=== PATIENT | female | born 1930 | race Caucasian/White ===

== ENCOUNTER → 2016-08-14 | Outpatient (REF) | payer MEDICARE ==
[~2016-08-14] MED LIST: /AMLO25TA PO; /GLIM2TA OR; ACET65TA; ATEN50TA2 PO; AUGM875T27 PO; CIPR-250 PO; CIPR250T3 PO; CIPR500T19; COLC1TAB5 PO; COUM1TAB14 PO; COUM1TAB17 PO; COUM2TAB10 PO; COUM7.5T PO; DETR4CAP PO; DETR4CAP10 PO; DIOV160T6 PO; DIOV320T PO; DIOV80TA PO; FURO40TA2 PO; GLIM2TAB PO; GLIP10TA6 PO; GLUC850T; INSUDET SC; INSUHUMDS SC; INSULADS SC; LASI20TA PO; LEVA500T PO; LOPR50TA PO; METO25TAB PO; MYSO50TA PO; MYSO50TA5 PO; PERCOCET PO; SITA50TAB PO; TYLE325T5 PO; TYLE650T35 PO; TYLENOL #3; VALS1TAB48 PO; VICO5TAB OR; WARF-21 PO; WARF-23 PO; ZETI10TA PO; ZETI10TA2 PO
== END ==
LOC: M LAB REF 14:18
PROVIDERS: ATTEND Internal Medicine Medical Oncology
DX: C56.9 Malignant neoplasm of unspecified ovary (principal)

== ENCOUNTER → 2016-11-20 | Outpatient (REF) | payer MEDICARE | LOC: M LAB REF 16:33 | PROVIDERS: ATTEND Internal Medicine Medical Oncology | DX: C56.9 Malignant neoplasm of unspecified ovary (principal) ==

== ENCOUNTER → 2017-02-05 | Outpatient (CLI) | payer MEDICARE ==
[~2017-02-05] MED LIST changes: +ATOR1TAB19 PO; -AUGM875T27 PO; +AUGM875T28 PO; +COLC1TAB14 PO; -COLC1TAB5 PO; +COUM2.5T17 PO; -COUM2TAB10 PO; +COUM2TAB22 PO; -DETR4CAP10 PO; +FOLI1TAB4 PO; +INSULANT SC; +LASI40TA PO; +LEVA1TAB2 PO; -LEVA500T PO; -ZETI10TA2 PO; +ZETI10TA30 PO
--- NOTE | 2017-02-05 13:07 | REPMRS ---
Patient History The patient states she has not had a clinical breast exam in over a year. Patient is postmenopausal, has history of other cancer at age 82, has history of ovarian cancer at age 77, and had previous chemotherapy at age 77. No known family history of cancer. Benign excisional biopsy of the right breast. Digital Woman Screen Mammo: February 05, 2017 - Exam #: [id number] Bilateral CC and MLO view(s) were taken. Technologist: Precious Salazar, Technologist Prior study comparison: February 02, 2016, digital woman screen mammo performed at [facility]. January 28, 2015, digital woman screen mammo performed at [facility]. FINDINGS: There are scattered fibroglandular densities. There is a fairly symmetric fibroglandular pattern in both breasts. There has been no interval development of masses, areas of architectural distortion or clusters of microcalcifications typical of malignancy. ASSESSMENT: BI-RADS/ACR category 2 mammogram. Benign finding(s). Recommendation Routine screening mammogram of both breasts in 1 year (for women over age 40). This mammogram was interpreted with the aid of an FDA-approved computer-aided dectection system. Electronically Signed By: Ran Jacome MD 02/05/17 [id number]
== END ==
LOC: M WHC 10:46
PROVIDERS: ATTEND Family Medicine
DX: Z12.31 Encounter for screening mammogram for malignant neoplasm of breast (principal); Z78.0 Asymptomatic menopausal state; R92.8 Other abnormal and inconclusive findings on diagnostic imaging of breast

== ENCOUNTER → 2017-03-18 | Outpatient (REF) | payer MEDICARE | LOC: M LAB REF 16:27 | PROVIDERS: ATTEND Internal Medicine Medical Oncology | DX: C56.9 Malignant neoplasm of unspecified ovary (principal) ==

== ENCOUNTER → 2017-04-24 | Outpatient (CLI) | payer MEDICARE ==
[2017-04-24 11:18] LABS: MEAN CORPUSCULAR HEMOGLOBIN 31.5 pg (27.0-33.0); MEAN CORPUSCULAR VOLUME 95.6 fl (80.0-96.0); PLATELET COUNT, AUTOMATED 163 10^3/uL (150-450); RED CELL DISTRIBUTION WIDTH 15.1 % (11.5-14.5); WHITE BLOOD COUNT 6.6 10^3/uL (4.0-10.0)
[2017-04-24 11:34] LABS: INR 2.16
[2017-04-24 11:41] LABS: CALCIUM LEVEL 8.5 MG/DL (8.8-10.2); CREATININE FOR GFR 1.21 MG/DL (0.55-1.02)
--- NOTE | 2017-04-24 11:42 | REP ---
PA and lateral chest: Comparison is 04/23/2016. There is a left subclavian [id number], unchanged. There is a small parenchymal scar in the left costophrenic angle, unchanged. Lung urbina are clear otherwise. Cardiac size is normal. The scott, mediastinum, and bony thorax are unchanged. Impression: Essentially negative chest. No interval change. Signed by Ran Lopez MD 04/24/2017 11:33 A
--- NOTE | 2017-04-25 19:58 | ECGEPIP ---
Stationary ECG Study [facility] Test Date: 2017-04-24 Pat Name: LUCIANA GUILLEN Department: Room: - Gender: F Reverser: BIPIN : [id number] Requested By: Kim HUSSEIN Order Number: [id number] Reading MD: Reinaldo Hutson Measurements Intervals Harmony Rate: 59 P: 62 WY: 185 QRS: -37 QRSD: 98 T: 30 QT: 437 QTc: 435 Interpretive Statements SINUS BRADYCARDIA WITH OCCASIONAL SUPRAVENTRICULAR PREMATURE COMPLEXES MARKED LEFT AXIS DEVIATION MINIMAL ST DEPRESSION NO CHANGE SINCE DAY BEFORE Electronically Signed On 04-25-2017 19:58:06 EST by Reinaldo Hutson
== END ==
LOC: M LAB 10:41
PROVIDERS: ATTEND Nurse Practitioner Women's Health
DX: Z01.818 Encounter for other preprocedural examination (principal); N13.30 Unspecified hydronephrosis; Z79.01 Long term (current) use of anticoagulants; Z79.899 Other long term (current) drug therapy

== ENCOUNTER 2017-05-01 13:36 | Day surgery (SDC) | payer MEDICARE ==
[~2017-05-01] VITALS: Ht 170.2 cm; Wt 99.8 kg
[2017-05-01] MEDS ORDERED: LR 1,000 ML IV ONE (14:00)
[2017-05-01 14:16] LABS: INR 1.07
[2017-05-01] MEDS ORDERED: CONRAY-60 60% 50ML VIAL (Q9961) As Ordered ONE (14:34)
[2017-05-01] MEDS ORDERED: LIDOCAINE 2% 5ML JELLY UROJET As Ordered ONE (14:51)
[2017-05-01] MEDS ORDERED: fentaNYL 250 MCG/5 ML INJECTION (J3010) As Ordered ONE (15:06)
[2017-05-01] MEDS ORDERED: LIDOCAINE 2% INJ 100 MG/5 ML SDV (FOR ANES.) As Ordered ONE (15:06)
[2017-05-01] MEDS ORDERED: MIDAZOLAM INJ 2 MG/2 ML VIAL (J2250) As Ordered ONE (15:06)
[2017-05-01] MEDS ORDERED: PROPOFOL 200 MG/20 ML VIAL As Ordered ONE ×3 (15:06→16:02)
[2017-05-01] MEDS ORDERED: METHYLENE BLUE 0.5% (5MG/ML) 10 ML AMP (PROVAYBLUE)(Q9968 PER 1MG) As Ordered ONE (15:51)
[2017-05-01] MEDS ORDERED: TYLE650T35 PO (16:35)
[2017-05-01] MEDS ORDERED: LEVA1TAB2 PO (16:35)
[2017-05-01] MEDS ORDERED: fentaNYL 100 MCG/2 ML INJECTION (J3010) IV PRN (17:45)
[2017-05-01] MEDS ORDERED: NORCO, ANEXSIA 5/325MG TABLET (HYDROcodone/ACETAMINOPHEN) PO PRN (17:45)
[2017-05-01] MEDS ORDERED: ONDANSETRON 4MG/2ML VIAL (J2405) IV PRN (17:45)
[2017-05-01] MEDS ORDERED: LR 1,000 ML IV SCH (17:45)
[2017-05-01 18:20] VITALS: BP_SYST 180
--- NOTE | 2017-05-01 18:20 | REP ---
C-ARM VIEWS, ABDOMEN DURING PLACEMENT OF URETERAL CATHETER: Multiple C-ARM views are performed. There is injection of contrast into a moderately dilated pelvicalyceal system and ureter, partially opacified. There is placement of a right ureteral stent with the proximal end coiled in the right renal pelvis and the distal end coiled in the region of the urinary bladder. 2 minutes 59 seconds of fluoroscopy time was utilized. Signed by Ran Jacome MD 05/02/2017 04:52 P
[2017-05-01 18:21] VITALS: BP_DIAS 80
[2017-05-01] MEDS ORDERED: ACETAMINOPHEN 650MG ER TAB (TYLENOL ARTHRITIS) PO SCH ×2 (18:45→22:00)
[2017-05-01] MEDS ORDERED: LevoFLOXacin 500 MG TABLET PO ONE (21:00)
[2017-05-02] MEDS ORDERED: LevoFLOXacin 500 MG TABLET PO SCH (06:00)
--- NOTE | 2017-05-02 07:21 | RO ---
DATE OF PROCEDURE: 05/01/2017 PREOPERATIVE DIAGNOSIS: Right hydronephrosis due to extrinsic ureteral obstruction. POSTOPERATIVE DIAGNOSIS: Right hydronephrosis due to extrinsic ureteral obstruction. PROCEDURE: Cystoscopy, plus transurethral resection of bladder tumor (TURBT), plus right retrograde pyelogram plus exchange of JJ metallic stent #6-Vincentian x 26 cm. SURGEON: Dr. El Peck BRANCH [employer] CLERK: None. ANESTHESIA: General. 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 COMPLICATIONS: None. ESTIMATED BLOOD LOSS: Minimal. HISTORY OF PRESENT ILLNESS: This is an 86-year-old female patient that had a history of ovarian cancer. She has right hydronephrosis. She has a right metallic stent that has been in place for 1 year. She is here today for right metallic JJ stent exchange. PROCEDURE DESCRIPTION: In a patient under general anesthesia in supine modified low lithotomy position, after prepping and draping the area of concern which included the entire genitalia and abdomen, we introduced a cystoscope 21 Vincentian cystoscope with a 30 degrees lens. Under videoscopic guidance, we actually visualized the right metallic stent in good position. There was severe bullous edema and solid tumor around the metallic stent. With a grasper, we pulled it out of the body of the patient and then with a cystoscopy, we tried to find the right ureteral orifice. We could not find it at all because of the bullous edema and because of solid tumor around the ureteral orifice. For this reason, we actually decided to reset the area with bipolar resection. We actually did a resection of the area until it was clear. It was very difficult to find the right ureteral orifice. We passed a Pollack catheter retrograde. We could see hydronephrosis and tortuous ureter all the way up to that kidney. We then passed a guidewire, took the Pollack catheter out and passed a metallic stent sheath up to the kidney, removed the internal obturator and guidewire and left transparent sheath of the metallic stent in place in the right renal pelvis. We then collected some urine specimen from the right renal pelvis for urine culture and then we proceeded to actually pass a metallic stent up to the kidney. Once it was in good position and curled in the right renal pelvis, we removed the transplant applicator out and we could see the curl in the bladder. We then proceeded to place a resectoscope, fulgurate all the bladder vessels and take all the chips of bladder tumor resected with Ellik evacuator. These were sent for permanent pathology analysis as bladder tumor. We then proceeded to take the resectoscope out and place a #20-Vincentian Martinez catheter, inflated the balloon to [address] it to gravity. PLAN: The patient will go home today. She will have the Martinez catheter for 1 week. She will followup at [facility] in 1 week to remove the Martinez catheter and voiding trial. She will have also Levaquin 500 mg one tablet by mouth daily and Tylenol every 8 hours as needed for pain. She will drink 2 liters of water a day. She will followup in 1 week. Permanent pathology analysis from the TURBT was sent. The patient had a very difficult JJ stent placement. The stent can be actually in place for 1 year, however, we should consider that in the future, she could have a nephrostomy tube if it is impossible to exchange it.
== END 2017-05-01 18:40 | disposition home or self-care (01) ==
LOC: M SDC 13:36
PROVIDERS: ATTEND Urology
DX: N13.30 Unspecified hydronephrosis (principal); D49.4 Neoplasm of unspecified behavior of bladder; I10 Essential (primary) hypertension; E78.00 Pure hypercholesterolemia, unspecified; E11.9 Type 2 diabetes mellitus without complications; N39.46 Mixed incontinence; G25.0 Essential tremor; K76.0 Fatty (change of) liver, not elsewhere classified; I48.0 Paroxysmal atrial fibrillation; M12.9 Arthropathy, unspecified; Z79.899 Other long term (current) drug therapy; Z79.01 Long term (current) use of anticoagulants; Z86.711 Personal history of pulmonary embolism; Z85.43 Personal history of malignant neoplasm of ovary; Z92.21 Personal history of antineoplastic chemotherapy; Z90.710 Acquired absence of both cervix and uterus
CPT/HCPCS: 36415; 52235; 52332; 74420; 85610; 87086; 88305; C2625; J0690; J2250; J3010; Q9961; Q9968

== ENCOUNTER 2017-05-08 19:34 | Emergency (ER) | payer MEDICARE ==
[~2017-05-08] VITALS: Ht 170.2 cm; Wt 100.0 kg
[2017-05-08 19:35] VITALS: BP 138/72
[2017-05-08] MEDS ORDERED: COUM1TAB17 PO (19:53)
[2017-05-08] MEDS ORDERED: COUM2.5T17 PO (19:53)
[2017-05-08] MEDS ORDERED: CYCLOBENZAPRINE 5MG TABLET PO ONE (21:00)
[2017-05-08] MEDS ORDERED: CYCL5TAB PO (21:01)
== END 2017-05-08 21:28 | disposition home or self-care (01) ==
LOC: M ED 19:34
DX: M54.30 Sciatica, unspecified side (principal); N18.9 Chronic kidney disease, unspecified; Z86.718 Personal history of other venous thrombosis and embolism; Z86.711 Personal history of pulmonary embolism; Z79.899 Other long term (current) drug therapy; Z79.01 Long term (current) use of anticoagulants; Z79.4 Long term (current) use of insulin

== ENCOUNTER 2017-07-27 07:14 | Inpatient (IN) | payer MEDICARE ==
[2017-07-27] MEDS: NS 1,000 ML IV (07:46)
[2017-07-27 08:18] LABS: BASO % 0.4 % (0.0-1.0); EOS % 0.4 % (0.0-3.0); HEMATOCRIT 39.7 % (36.0-47.0); IMMATURE GRANULOCYTE % 0.8 % (0-3.0); LYMPH # 0.9 10^3/uL (1.5-4.5); LYMPH % 16.9 % (24.0-44.0); MEAN CORPUSCULAR HEMOGLOBIN 30.8 pg (27.0-33.0); MEAN CORPUSCULAR HGB CONC 32.7 g/dl (32.0-36.5); MEAN CORPUSCULAR VOLUME 94.1 fl (80.0-96.0); MONO # 0.6 10^3/uL (0.0-0.8); MONO % 11.8 % (0.0-5.0); NEUTROPHILS # 3.7 10^3/uL (1.8-7.7); NEUTROPHILS % 69.7 % (36.0-66.0); PLATELET COUNT, AUTOMATED 136 10^3/uL (150-450); RED BLOOD COUNT 4.22 10^6/uL (4.00-5.40); RED CELL DISTRIBUTION WIDTH 15.3 % (11.5-14.5); WHITE BLOOD COUNT 5.3 10^3/uL (4.0-10.0)
[2017-07-27 08:27] LABS: PROTHROMBIN TIME 20.5 SECONDS (12.4-14.5)
[2017-07-27] MEDS: ALBUTEROL SULFATE 2.5 MG/0.5 ML INH NEB SOLN NEB ×3 (08:32→09:08)
[2017-07-27 08:48] LABS: ANION GAP 8 MEQ/L (8-16); BLOOD UREA NITROGEN 17 MG/DL (7-18); CALCIUM LEVEL 8.8 MG/DL (8.8-10.2); CARBON DIOXIDE LEVEL 28 MEQ/L (21-32); CHLORIDE LEVEL 100 MEQ/L (98-107); CPK CREATINE PHOSPHOKINASE 82 U/L (26-192); CREATININE FOR GFR 0.96 MG/DL (0.55-1.30); GLOMERULAR FILTRATION RATE 58.7 (>32); GLUCOSE, FASTING 146 MG/DL (70-100); SODIUM LEVEL 136 MEQ/L (136-145); TROPONIN I < 0.02 NG/ML (< 0.10)
[2017-07-27 08:49] LABS: CK-MB VALUE MASS 1.2 NG/ML (0.0-3.6); MB/CK RELATIVE INDEX 1.46 (< OR =4)
[2017-07-27 08:55] LABS: ALBUMIN 3.3 GM/DL (3.2-5.2); ALBUMIN/GLOBULIN RATIO 0.73 (1.00-1.93); ALKALINE PHOSPHATASE 147 U/L (45-117); ALT/SGPT 14 U/L (12-78); AST/SGOT 27 U/L (7-37); BILIRUBIN,DIRECT 0.1 MG/DL (0.0-0.2); BILIRUBIN,TOTAL 0.5 MG/DL (0.2-1.0); NT-PRO BNP 3987 PG/ML (<450); TOTAL PROTEIN 7.8 GM/DL (6.4-8.2)
[2017-07-27] MEDS ORDERED: ACETAMINOPHEN TAB 650MG DOSE (2X325MG) PO (11:15)
[2017-07-27] MEDS ORDERED: ONDANSETRON 4MG/2ML VIAL (J2405) IV (11:15)
[2017-07-27] MEDS: HumaLOG INSULIN (NovoLOG) PER UNIT SC ×3 (12:00→20:24)
[2017-07-27] MEDS ORDERED: NS 1,000 ML IV (12:00)
[2017-07-27] MEDS: IPRATROPIUM 0.5MG/ALBUTEROL 2.5MG INH SOL UD 3ML (DUONEB)(J7620) NEB ×3 (12:00→19:25)
[2017-07-27] MEDS ORDERED: GLUCOSE 4 GM CHEW TABLET PO (13:30)
[2017-07-27] MEDS ORDERED: DEXTROSE 50% 50 ML SYRINGE IV (13:30)
[2017-07-27] MEDS ORDERED: GLUCAGON FOR INJ 1 MG VIAL (J1610) SC (13:30)
[2017-07-27] MEDS ORDERED: ALBUTEROL SULFATE 2.5 MG/0.5 ML INH NEB SOLN INH (13:45)
[2017-07-27] MEDS: FOLIC ACID 1 MG TAB PO (15:45)
[2017-07-27] MEDS: predniSONE 10 MG TAB PO (15:46)
[2017-07-27 16:37] LABS: CK-MB VALUE MASS 1.3 NG/ML (0.0-3.6); CPK CREATINE PHOSPHOKINASE 83 U/L (26-192); MB/CK RELATIVE INDEX 1.56 (< OR =4); TROPONIN I < 0.02 NG/ML (< 0.10)
[2017-07-27] MEDS: TOLTERODINE TARTRATE 2 MG LA CAP (DETROL LA) PO (16:57)
[2017-07-27] MEDS: WARFARIN SOD 3 MG TAB PO (16:58)
[2017-07-27] MEDS: ATENOLOL 50 MG TAB PO (16:59)
[2017-07-27] MEDS: SITagliptin 50 MG TAB (JANUVIA) PO (17:00)
[2017-07-27 17:12] LABS: BEDSIDE GLUCOSE 188 MG/DL (83-110)
[2017-07-27] MEDS: amLODIPine 5 MG TAB PO (18:30)
[2017-07-27 20:23] LABS: BEDSIDE GLUCOSE 249 MG/DL (83-110)
[2017-07-27] MEDS: LEVEMIR (INSULIN DETEMIR) 1 UNITS/0.01ML SC (20:24)
[2017-07-27] MEDS: PRIMIDONE 50 MG TAB PO (20:25)
[2017-07-27] MEDS: ATORVASTATIN 10 MG TAB PO (20:25)
[2017-07-28] MEDS ORDERED: SLF 3 ML SYR IV (03:15)
[2017-07-28] MEDS: IPRATROPIUM 0.5MG/ALBUTEROL 2.5MG INH SOL UD 3ML (DUONEB)(J7620) NEB ×6 (04:00→20:39)
[2017-07-28 04:08] LABS: BASO % 0.3 % (0.0-1.0); HEMATOCRIT 35.2 % (36.0-47.0); HEMOGLOBIN 11.6 g/dl (12.0-16.0); IMMATURE GRANULOCYTE % 1.1 % (0-3.0); LYMPH # 0.9 10^3/uL (1.5-4.5); LYMPH % 24.7 % (24.0-44.0); MEAN CORPUSCULAR HEMOGLOBIN 30.7 pg (27.0-33.0); MEAN CORPUSCULAR VOLUME 93.1 fl (80.0-96.0); MONO # 0.3 10^3/uL (0.0-0.8); MONO % 6.6 % (0.0-5.0); NEUTROPHILS # 2.5 10^3/uL (1.8-7.7); NEUTROPHILS % 67.3 % (36.0-66.0); PLATELET COUNT, AUTOMATED 122 10^3/uL (150-450); RED BLOOD COUNT 3.78 10^6/uL (4.00-5.40); RED CELL DISTRIBUTION WIDTH 15.1 % (11.5-14.5); WHITE BLOOD COUNT 3.8 10^3/uL (4.0-10.0)
[2017-07-28 04:28] LABS: ANION GAP 6 MEQ/L (8-16); BLOOD UREA NITROGEN 16 MG/DL (7-18); CALCIUM LEVEL 8.3 MG/DL (8.8-10.2); CARBON DIOXIDE LEVEL 28 MEQ/L (21-32); CHLORIDE LEVEL 102 MEQ/L (98-107); CREATININE FOR GFR 0.94 MG/DL (0.55-1.30); GLOMERULAR FILTRATION RATE > 60.0 (>32); GLUCOSE, FASTING 217 MG/DL (70-100); POTASSIUM SERUM 4.3 MEQ/L (3.5-5.1); SODIUM LEVEL 136 MEQ/L (136-145)
[2017-07-28] MEDS: SLF 3 ML SYR IV ×3 (05:25→21:03)
[2017-07-28] MEDS: FOLIC ACID 1 MG TAB PO (08:48)
[2017-07-28] MEDS: predniSONE 10 MG TAB PO (08:48)
[2017-07-28] MEDS: SITagliptin 50 MG TAB (JANUVIA) PO (08:48)
[2017-07-28] MEDS: TOLTERODINE TARTRATE 2 MG LA CAP (DETROL LA) PO (08:50)
[2017-07-28] MEDS: amLODIPine 5 MG TAB PO (08:50)
[2017-07-28] MEDS: ATENOLOL 50 MG TAB PO (08:51)
[2017-07-28] MEDS: HumaLOG INSULIN (NovoLOG) PER UNIT SC ×4 (08:51→21:00)
[2017-07-28 12:32] LABS: BEDSIDE GLUCOSE 195 MG/DL (83-110)
[2017-07-28 12:36] LABS: INR 1.87; PROTHROMBIN TIME 22.1 SECONDS (12.4-14.5)
[2017-07-28] MEDS: WARFARIN SOD 3 MG TAB PO (17:39)
[2017-07-28 17:41] LABS: BEDSIDE GLUCOSE 301 MG/DL (83-110)
[2017-07-28 20:53] LABS: BEDSIDE GLUCOSE 229 MG/DL (83-110)
[2017-07-28] MEDS: PRIMIDONE 50 MG TAB PO (21:02)
[2017-07-28] MEDS: ATORVASTATIN 10 MG TAB PO (21:02)
[2017-07-28] MEDS: LEVEMIR (INSULIN DETEMIR) 1 UNITS/0.01ML SC (21:03)
[2017-07-29] MEDS: IPRATROPIUM 0.5MG/ALBUTEROL 2.5MG INH SOL UD 3ML (DUONEB)(J7620) NEB ×3 (00:14→08:32)
[2017-07-29] MEDS: SLF 3 ML SYR IV (05:17)
[2017-07-29 05:27] LABS: BASO % 0.2 % (0.0-1.0); EOS % 0.3 % (0.0-3.0); HEMATOCRIT 35.9 % (36.0-47.0); HEMOGLOBIN 11.6 g/dl (12.0-16.0); IMMATURE GRANULOCYTE % 0.5 % (0-3.0); LYMPH # 1.9 10^3/uL (1.5-4.5); LYMPH % 32.4 % (24.0-44.0); MEAN CORPUSCULAR HEMOGLOBIN 29.9 pg (27.0-33.0); MEAN CORPUSCULAR HGB CONC 32.3 g/dl (32.0-36.5); MEAN CORPUSCULAR VOLUME 92.5 fl (80.0-96.0); MONO # 0.5 10^3/uL (0.0-0.8); MONO % 8.4 % (0.0-5.0); NEUTROPHILS # 3.4 10^3/uL (1.8-7.7); NEUTROPHILS % 58.2 % (36.0-66.0); PLATELET COUNT, AUTOMATED 142 10^3/uL (150-450); RED BLOOD COUNT 3.88 10^6/uL (4.00-5.40); RED CELL DISTRIBUTION WIDTH 15.2 % (11.5-14.5); WHITE BLOOD COUNT 5.8 10^3/uL (4.0-10.0)
[2017-07-29 05:38] LABS: INR 2.23; PROTHROMBIN TIME 25.5 SECONDS (12.4-14.5)
[2017-07-29 05:47] LABS: ANION GAP 8 MEQ/L (8-16); BLOOD UREA NITROGEN 22 MG/DL (7-18); CALCIUM LEVEL 9.2 MG/DL (8.8-10.2); CARBON DIOXIDE LEVEL 28 MEQ/L (21-32); CHLORIDE LEVEL 102 MEQ/L (98-107); CREATININE FOR GFR 1.02 MG/DL (0.55-1.30); GLOMERULAR FILTRATION RATE 54.7 (>32); GLUCOSE, FASTING 148 MG/DL (70-100); POTASSIUM SERUM 3.9 MEQ/L (3.5-5.1); SODIUM LEVEL 138 MEQ/L (136-145)
[2017-07-29] MEDS: SITagliptin 50 MG TAB (JANUVIA) PO (08:55)
[2017-07-29] MEDS: predniSONE 10 MG TAB PO (08:55)
[2017-07-29] MEDS: FOLIC ACID 1 MG TAB PO (08:55)
[2017-07-29] MEDS: HumaLOG INSULIN (NovoLOG) PER UNIT SC (08:55)
[2017-07-29] MEDS: ATENOLOL 50 MG TAB PO (08:56)
[2017-07-29] MEDS: amLODIPine 5 MG TAB PO (08:56)
== END 2017-07-29 12:51 | disposition home or self-care (01) | DRG 203 ==
LOC: M ED 07:14 → M ED INP 11:11 → M PCU 14:50
DX: J20.5 Acute bronchitis due to respiratory syncytial virus (principal); I48.91 Unspecified atrial fibrillation; I10 Essential (primary) hypertension; E11.9 Type 2 diabetes mellitus without complications; Z79.01 Long term (current) use of anticoagulants; E78.5 Hyperlipidemia, unspecified; Z79.899 Other long term (current) drug therapy; Z85.841 Personal history of malignant neoplasm of brain; Z79.4 Long term (current) use of insulin

== ENCOUNTER → 2017-08-12 | Outpatient (REF) | payer MEDICARE ==
[2017-08-13 10:27] LABS: CA 125 97.9 U/ML (<30.2)
== END ==
LOC: M LAB REF 18:31
DX: C56.9 Malignant neoplasm of unspecified ovary (principal)
CPT/HCPCS: 86304

== ENCOUNTER 2017-11-06 10:46 | Day surgery (SDC) | payer MEDICARE ==
[~2017-11-06 10:46] MED LIST changes: -/AMLO25TA PO; -/GLIM2TA OR; -ACET65TA; +ACETAMINOPHEN 325 MG TAB PO; -ATEN50TA2 PO; -ATOR1TAB19 PO; -AUGM875T28 PO; -CIPR-250 PO; -CIPR250T3 PO; -CIPR500T19; -COLC1TAB14 PO; -COUM1TAB14 PO; -COUM1TAB17 PO; -COUM2.5T17 PO; -COUM2TAB22 PO; -COUM7.5T PO; -DETR4CAP PO; -DIOV160T6 PO; -DIOV320T PO; -DIOV80TA PO; -FOLI1TAB4 PO; -FURO40TA2 PO; -GLIM2TAB PO; -GLIP10TA6 PO; -GLUC850T; -INSUDET SC; -INSUHUMDS SC; -INSULADS SC; -INSULANT SC; -LASI20TA PO; -LASI40TA PO; -LEVA1TAB2 PO; -LOPR50TA PO; -METO25TAB PO; +MIDAZOLAM INJ 2 MG/2 ML VIAL (J2250) As Ordered; -MYSO50TA PO; -MYSO50TA5 PO; -PERCOCET PO; +PHENYLEPHRINE HCL 10 % OPHTH. SOL 5ML OS; -SITA50TAB PO; -TYLE325T5 PO; -TYLE650T35 PO; -TYLENOL #3; -VALS1TAB48 PO; -VICO5TAB OR; -WARF-21 PO; -WARF-23 PO; -ZETI10TA PO; -ZETI10TA30 PO; +fentaNYL 100 MCG/2 ML INJECTION (J3010) As Ordered
[2017-11-06 11:13] LABS: BEDSIDE GLUCOSE 107 MG/DL (83-110)
[2017-11-06] MEDS ORDERED: TRIMETHOBENZAMIDE 300 MG CAP PO (11:15)
[2017-11-06] MEDS: CYCLOPENTOLATE 2% OPHTH SOLN 2ML BTL OS (11:20)
[2017-11-06] MEDS: PHENYLEPHRINE 2.5% OPHTH SOL 2ML OS (11:20)
[2017-11-06] MEDS: OFLOXACIN 0.3 % (OCUFLOX) OPTH SOL 5ML OS (11:20)
[2017-11-06] MEDS: TROPICAMIDE 1% OPHTH SOLN 2ML OS (11:20)
[2017-11-06] MEDS: LIDOCAINE 3.5 % 1ML OPHTH TOPICAL GEL OU (11:20)
[2017-11-06] MEDS: POVIDONE-IODINE 5% OPHTH PREP SOL 30ML As Ordered (11:37)
[2017-11-06] MEDS: MOXIFLOXACIN IN BSS 0.25MG/0.25ML INTRACAMERAL INJ (OR EYE ONLY)(J2280) As Ordered (11:37)
[2017-11-06] MEDS: TRIAMCINOLONE PRES FR 40 MG/ML 1ML(TRIESENCE)(OR EYE ONLY)(J3300 PER 1MG) As Ordered (11:37)
[2017-11-06] MEDS: HEALON DUET (HEALON 10MG/ML 0.55ML & HEALON ENDOCOAT 30MG/ML 0.85ML) As Ordered (11:37)
[2017-11-06] MEDS: LIDOCAINE 1% SDV 5 ML VIAL As Ordered (11:37)
[2017-11-06] MEDS: BSS with VANC/TOB/EPI for EYE CASES IR (11:37)
[2017-11-06] MEDS: AcetaZOLAMIDE 500 MG ER CAP PO (12:06)
== END 2017-11-06 12:57 | disposition home or self-care (01) ==
LOC: M SDC 10:46
DX: H26.9 Unspecified cataract (principal); I10 Essential (primary) hypertension; E78.5 Hyperlipidemia, unspecified; I48.0 Paroxysmal atrial fibrillation; E11.9 Type 2 diabetes mellitus without complications; K76.9 Liver disease, unspecified; G25.0 Essential tremor; N39.46 Mixed incontinence; M19.90 Unspecified osteoarthritis, unspecified site; Z88.8 Allergy status to other drugs, medicaments and biological substances; Z79.899 Other long term (current) drug therapy; Z79.01 Long term (current) use of anticoagulants; Z85.43 Personal history of malignant neoplasm of ovary; Z92.21 Personal history of antineoplastic chemotherapy
CPT/HCPCS: 66984

== ENCOUNTER → 2017-11-25 | Outpatient (REF) | payer MEDICARE ==
[2017-11-26 08:59] LABS: CA 125 156.4 U/ML (<30.2)
== END ==
LOC: M LAB REF 17:33
DX: C77.5 Secondary and unspecified malignant neoplasm of intrapelvic lymph nodes (principal); C56.1 Malignant neoplasm of right ovary
CPT/HCPCS: 86304

== ENCOUNTER → 2017-12-09 | Outpatient (CLI) | payer MEDICARE ==
[~2017-12-09] MED LIST changes: -ACETAMINOPHEN 325 MG TAB PO; +GASTROGRAFIN SOLUTION 30ML (Q9963) As Ordered; +ISOVUE-370 76% 100ML VIAL (Q9967) As Ordered; -MIDAZOLAM INJ 2 MG/2 ML VIAL (J2250) As Ordered; -PHENYLEPHRINE HCL 10 % OPHTH. SOL 5ML OS; -fentaNYL 100 MCG/2 ML INJECTION (J3010) As Ordered
== END ==
LOC: M RAD 11:43
DX: C56.9 Malignant neoplasm of unspecified ovary (principal); R19.07 Generalized intra-abdominal and pelvic swelling, mass and lump; M16.0 Bilateral primary osteoarthritis of hip; M51.36 Other intervertebral disc degeneration, lumbar region; N13.30 Unspecified hydronephrosis; J98.11 Atelectasis; Z96.0 Presence of urogenital implants; Z95.828 Presence of other vascular implants and grafts
CPT/HCPCS: Q9963

== ENCOUNTER 2018-03-02 08:45 | Inpatient (IN) | payer MEDICARE ==
[2018-03-02] MEDS ORDERED: INFLUENZA VIRUS VACCINE HIGH DOSE 0.5 ML SYRINGE (90662) IM (09:00)
[2018-03-02 09:53] LABS: AMMONIA < 10 uMOL/L (<32)
[2018-03-02 09:54] LABS: HEMATOCRIT 38.4 % (36.0-47.0); HEMOGLOBIN 12.7 g/dl (12.0-15.5); MEAN CORPUSCULAR HEMOGLOBIN 31.8 pg (27.0-33.0); MEAN CORPUSCULAR HGB CONC 33.1 g/dl (32.0-36.5); PLATELET COUNT, AUTOMATED 123 10^3/uL (150-450); RED CELL DISTRIBUTION WIDTH 14.6 % (11.5-14.5); VENOUS BASE EXCESS -1.7 (-2.0-2.0); VENOUS HCO3 24.3 MEQ/L (23.0-27.0); VENOUS O2 SATURATION 67.9 % (60.0-80.0); VENOUS PARTIAL PRESSURE CO2 45.6 mmHg (38.0-50.0); VENOUS PARTIAL PRESSURE O2 37.2 mmHg (30.0-50.0); VENOUS PH 7.344 UNITS (7.330-7.430); VENOUS STANDARD HCO3 22.4 MEQ/L; VENOUS TOTAL CO2 25.7 MEQ/L (24.0-28.0); WHITE BLOOD COUNT 9.3 10^3/uL (4.0-10.0)
[2018-03-02 10:03] LABS: ALBUMIN 3.3 GM/DL (3.2-5.2); ALBUMIN/GLOBULIN RATIO 0.79 (1.00-1.93); ALKALINE PHOSPHATASE 195 U/L (45-117); ALT/SGPT 23 U/L (12-78); ANION GAP 16 MEQ/L (8-16); AST/SGOT 42 U/L (7-37); BILIRUBIN,DIRECT 1.3 MG/DL (0.0-0.2); BILIRUBIN,TOTAL 2.1 MG/DL (0.2-1.0); BLOOD UREA NITROGEN 19 MG/DL (7-18); CALCIUM LEVEL 8.6 MG/DL (8.8-10.2); CARBON DIOXIDE LEVEL 21 MEQ/L (21-32); CHLORIDE LEVEL 94 MEQ/L (98-107); CPK CREATINE PHOSPHOKINASE 129 U/L (26-192); CREATININE FOR GFR 1.62 MG/DL (0.55-1.30); GLOMERULAR FILTRATION RATE 32.1 (>32); GLUCOSE, FASTING 319 MG/DL (70-100); MB/CK RELATIVE INDEX 1.16 (< OR =4); POTASSIUM SERUM 3.8 MEQ/L (3.5-5.1); SODIUM LEVEL 131 MEQ/L (136-145); TOTAL PROTEIN 7.5 GM/DL (6.4-8.2); TROPONIN I 0.26 NG/ML (< 0.10)
[2018-03-02] MEDS: METOPROLOL 5 MG/5 ML VIAL IV ×3 (10:06→10:48)
[2018-03-02 10:08] LABS: INR 1.66; PROTHROMBIN TIME 19.9 SECONDS (12.1-14.4)
[2018-03-02 10:11] LABS: POS COUNT POS FLAG; POSITIVE DIFF POS FLAG; POSITIVE MORPH POS FLAG
[2018-03-02 10:14] LABS: LACTIC ACID SEPSIS PROTOCOL 6.7 MMOL/L (0.4-2.0)
[2018-03-02 10:14] LABS: ADD MANUAL DIFFER YES; DIFF SLIDE NUMBER 107
[2018-03-02] MEDS: NS 1,000 ML IV ×2 (10:15→14:53)
[2018-03-02] MEDS: METOPROLOL TART 25 MG TABLET PO (10:20)
[2018-03-02] MEDS: NS 2,730 ML in APPROPRIATE DILUENT 1 EA IV (10:27)
[2018-03-02] MEDS ORDERED: NS 1,000 ML IV (10:30)
[2018-03-02 10:54] LABS: BANDS 38 % (< 11); LYMPHOCYTES 2 % (16-52); METAMYELOCYTES 2 % (0-0); MONOCYTES 4 % (0-8); NEUTROPHILS 54 % (35-75); POLYCHROMASIA 1+
[2018-03-02 10:55] LABS: PLATELET ESTIMATE NORMAL (NORMAL)
[2018-03-02] MEDS: cefTRIAXone SOD 2 GM in D5W MINI-BAG PLUS 50 ML IV (10:56)
[2018-03-02 11:04] LABS: AMORPHOUS SEDIMENT RFX SMALL (NEGATIVE); KETONE, URINE AUTO RFX TRACE mg/dL (NEGATIVE); LEUKOCYTE ESTERASE UR AUTO RFX 1+ (NEGATIVE); MUCUS, URINE RFX SMALL (NEGATIVE); NITRITE, URINE AUTO RFX NEGATIVE (NEGATIVE); RBC, URINE AUTO RFX 90 /HPF (0-3); SPECIFIC GRAVITY UR AUTO RFX 1.016 (1.002-1.035); SQUAM EPITHELIAL CELL UR AURFX 0 /HPF (0-6); WBC, URINE AUTO RFX 82 /HPF (0-3)
[2018-03-02] MEDS ORDERED: ACETAMINOPHEN TAB 650MG DOSE (2X325MG) PO (11:15)
[2018-03-02] MEDS ORDERED: GLUCAGON FOR INJ 1 MG VIAL (J1610) SC ×2 (11:15→22:30)
[2018-03-02] MEDS ORDERED: GLUCOSE 4 GM CHEW TABLET PO ×2 (11:15→22:30)
[2018-03-02] MEDS ORDERED: DEXTROSE 50% 50 ML SYRINGE IV ×2 (11:15→22:30)
[2018-03-02] MEDS ORDERED: ATENOLOL 25 MG TAB PO (12:30)
[2018-03-02] MEDS: PANTOPRAZOLE 40MG INJ (PROTONIX) (C9113) IV (14:52)
[2018-03-02] MEDS: FOLIC ACID 1 MG TAB PO (14:52)
[2018-03-02] MEDS: ATENOLOL 25 MG TAB PO (14:59)
[2018-03-02 15:18] LABS: ALBUMIN 2.8 GM/DL (3.2-5.2); ALBUMIN/GLOBULIN RATIO 0.58 (1.00-1.93); ALKALINE PHOSPHATASE 184 U/L (45-117); ALT/SGPT 28 U/L (12-78); ANION GAP 16 MEQ/L (8-16); AST/SGOT 73 U/L (7-37); BILIRUBIN,TOTAL 1.5 MG/DL (0.2-1.0); BLOOD UREA NITROGEN 21 MG/DL (7-18); CALCIUM LEVEL 8.4 MG/DL (8.8-10.2); CARBON DIOXIDE LEVEL 21 MEQ/L (21-32); CHLORIDE LEVEL 96 MEQ/L (98-107); CPK CREATINE PHOSPHOKINASE 248 U/L (26-192); CREATININE FOR GFR 1.42 MG/DL (0.55-1.30); GLOMERULAR FILTRATION RATE 37.3 (>32); GLUCOSE, FASTING 313 MG/DL (70-100); MAGNESIUM LEVEL 2.3 MG/DL (1.8-2.4); MB/CK RELATIVE INDEX 1.37 (< OR =4); POTASSIUM SERUM 3.7 MEQ/L (3.5-5.1); SODIUM LEVEL 133 MEQ/L (136-145); TOTAL PROTEIN 7.6 GM/DL (6.4-8.2); TROPONIN I 2.98 NG/ML (< 0.10)
[2018-03-02] MEDS ORDERED: FUROSEMIDE 100 MG/10 ML VIAL (J1940) IV (16:00)
[2018-03-02] MEDS: WARFARIN SOD 5 MG TAB PO (16:51)
[2018-03-02] MEDS: MEROPENEM INJ 1 GM in APPROPRIATE DILUENT 1 EA IV (16:51)
[2018-03-02] MEDS: FUROSEMIDE 100 MG/10 ML VIAL (J1940) IV (17:15)
[2018-03-02 18:00] LABS: BEDSIDE GLUCOSE 324 MG/DL (83-110)
[2018-03-02] MEDS: HumaLOG INSULIN (NovoLOG) PER UNIT SC (18:25)
[2018-03-02] MEDS ORDERED: LEVALBUTEROL 1.25 MG/0.5 ML CONCENTRATE NEB NEB (18:45)
[2018-03-02] MEDS ORDERED: HEPARIN SOD (PORCINE) 5000 UNITS/ML VIAL IV (19:00)
[2018-03-02 20:03] LABS: ABG BASE EXCESS -0.4 (-2.0-2.0); ABG HCO3 21.8 MEQ/L (22.0-26.0); ABG O2 SATURATION 99.1 % (95.0-99.0); ABG PARTIAL PRESSURE CO2 28.8 mmHg (35.0-45.0); ABG PARTIAL PRESSURE O2 132.5 mmHg (75.0-100.0); ABG STANDARD HCO3 24.2 MEQ/L (22.0-26.0); ABG TOTAL CO2 22.6 MEQ/L (23.0-31.0); ABG pH (ARTERIAL) 7.496 UNITS (7.350-7.450)
[2018-03-02 20:35] LABS: PARTIAL THROMBOPLASTIN TIME 38.7 SECONDS (25.4-37.6)
[2018-03-02 20:54] LABS: BEDSIDE GLUCOSE 306 MG/DL (83-110)
[2018-03-02] MEDS: ATORVASTATIN 10 MG TAB PO (21:00)
[2018-03-02] MEDS: PRIMIDONE 50 MG TAB PO (21:00)
[2018-03-02] MEDS ORDERED: HumaLOG INSULIN (NovoLOG) PER UNIT SC (21:00)
[2018-03-02] MEDS: LEVEMIR (INSULIN DETEMIR) 1 UNITS/0.01ML SC (21:04)
[2018-03-02] MEDS: HEPARIN SOD (PORCINE) 5000 UNITS/ML VIAL IV (21:04)
[2018-03-02] MEDS: HEPARIN DRIP 25,000 UNITS in APPROPRIATE DILUENT 1 EA IV (21:11)
[2018-03-02 21:12] LABS: CPK CREATINE PHOSPHOKINASE 380 U/L (26-192); MB/CK RELATIVE INDEX 1.37 (< OR =4); TROPONIN I 8.69 NG/ML (< 0.10)
[2018-03-03] MEDS: CLOPIDOGREL 300 MG TAB (PLAVIX) PO (00:22)
[2018-03-03 00:46] LABS: BEDSIDE GLUCOSE 274 MG/DL (83-110)
[2018-03-03] MEDS: HumaLOG INSULIN (NovoLOG) PER UNIT SC ×4 (01:18→18:00)
[2018-03-03 03:29] LABS: PARTIAL THROMBOPLASTIN TIME 203.9 SECONDS (25.4-37.6)
[2018-03-03] MEDS: NOREPINEPHRINE BITARTRATE 8 MG in D5W 492 ML IV (05:36)
[2018-03-03 06:02] LABS: HEMATOCRIT 36.6 % (36.0-47.0); HEMOGLOBIN 12.3 g/dl (12.0-15.5); MEAN CORPUSCULAR HEMOGLOBIN 31.9 pg (27.0-33.0); MEAN CORPUSCULAR HGB CONC 33.6 g/dl (32.0-36.5); MEAN CORPUSCULAR VOLUME 95.1 fl (80.0-96.0); PLATELET COUNT, AUTOMATED 104 10^3/uL (150-450); RED BLOOD COUNT 3.85 10^6/uL (4.00-5.40); RED CELL DISTRIBUTION WIDTH 14.8 % (11.5-14.5); WHITE BLOOD COUNT 14.3 10^3/uL (4.0-10.0)
[2018-03-03] MEDS: MEROPENEM INJ 1 GM in APPROPRIATE DILUENT 1 EA IV ×2 (06:16→18:00)
[2018-03-03 06:21] LABS: ABG BASE EXCESS 1.4 (-2.0-2.0); ABG HCO3 23.5 MEQ/L (22.0-26.0); ABG O2 SATURATION 99.4 % (95.0-99.0); ABG PARTIAL PRESSURE CO2 29.8 mmHg (35.0-45.0); ABG PARTIAL PRESSURE O2 142.6 mmHg (75.0-100.0); ABG STANDARD HCO3 25.8 MEQ/L (22.0-26.0); ABG TOTAL CO2 24.4 MEQ/L (23.0-31.0); ABG pH (ARTERIAL) 7.515 UNITS (7.350-7.450)
[2018-03-03 06:32] LABS: INR 1.47; PROTHROMBIN TIME 18.1 SECONDS (12.1-14.4)
[2018-03-03 06:45] LABS: POSITIVE MORPH POS FLAG
[2018-03-03 06:46] LABS: ADD MANUAL DIFFER YES; DIFF SLIDE NUMBER 98
[2018-03-03 06:47] LABS: BEDSIDE GLUCOSE 214 MG/DL (83-110)
[2018-03-03 07:05] LABS: CPK CREATINE PHOSPHOKINASE 451 U/L (26-192); MB/CK RELATIVE INDEX 1.09 (< OR =4)
[2018-03-03 07:19] LABS: ALBUMIN 2.4 GM/DL (3.2-5.2); ALBUMIN/GLOBULIN RATIO 0.67 (1.00-1.93); ALKALINE PHOSPHATASE 138 U/L (45-117); ALT/SGPT 27 U/L (12-78); ANION GAP 14 MEQ/L (8-16); AST/SGOT 79 U/L (7-37); BILIRUBIN,TOTAL 0.8 MG/DL (0.2-1.0); BLOOD UREA NITROGEN 34 MG/DL (7-18); CARBON DIOXIDE LEVEL 23 MEQ/L (21-32); CHLORIDE LEVEL 98 MEQ/L (98-107); CREATININE FOR GFR 2.08 MG/DL (0.55-1.30); GLUCOSE, FASTING 177 MG/DL (70-100); MAGNESIUM LEVEL 2.3 MG/DL (1.8-2.4); POTASSIUM SERUM 3.8 MEQ/L (3.5-5.1); SODIUM LEVEL 135 MEQ/L (136-145)
[2018-03-03 07:31] LABS: BANDS 3 % (< 11); BASOPHILS 1 % (0-4); LYMPHOCYTES 5 % (16-52); METAMYELOCYTES 5 % (0-0); MONOCYTES 3 % (0-8); MYELOCYTES 1 % (0-0); NEUTROPHILS 82 % (35-75); PLATELET ESTIMATE DECREASED (NORMAL)
[2018-03-03] MEDS: TOLTERODINE TARTRATE 2 MG LA CAP (DETROL LA) PO (08:48)
[2018-03-03] MEDS: FOLIC ACID 1 MG TAB PO (08:48)
[2018-03-03] MEDS: DIGOXIN INJ 0.5 MG/2 ML AMP (J1160) IV (08:53)
[2018-03-03] MEDS ORDERED: ATENOLOL 50 MG TAB PO (09:00)
[2018-03-03] MEDS ORDERED: VANCOMYCIN INTERMITTENT/PULSE DOSING BY CLINICAL PHARMACIST PER DOSING PROTOCOL XX (10:45)
[2018-03-03] MEDS: VANCOMYCIN HCL 1,000 MG, VIAL MATE ADAPTER 1 EACH in D5W 250 ML IV (11:10)
[2018-03-03 11:43] LABS: PARTIAL THROMBOPLASTIN TIME 137.5 SECONDS (25.4-37.6)
[2018-03-03] MEDS: PANTOPRAZOLE 40MG INJ (PROTONIX) (C9113) IV ×2 (12:29→20:18)
[2018-03-03] MEDS: VANCOMYCIN HCL 500 MG in D5W MINI-BAG PLUS 100 ML IV (12:30)
[2018-03-03 12:41] LABS: BEDSIDE GLUCOSE 245 MG/DL (83-110)
[2018-03-03] MEDS ORDERED: fentaNYL 100 MCG/2 ML INJECTION (J3010) IV ×2 (13:45→17:15)
[2018-03-03] MEDS: NYSTATIN 100,000 UNITS/GM TOPICAL PWD 15 GM TOP ×2 (16:27→20:18)
[2018-03-03] MEDS: HEPARIN SOD (PORCINE) 5000 UNITS/ML VIAL SQ (16:27)
[2018-03-03] MEDS ORDERED: INFLUENZA VIRUS VACCINE HIGH DOSE 0.5 ML SYRINGE (90662) IM (17:11)
[2018-03-03] MEDS ORDERED: LEVALBUTEROL 1.25 MG/0.5 ML CONCENTRATE NEB NEB (17:15)
[2018-03-03] MEDS ORDERED: ACETAMINOPHEN TAB 650MG DOSE (2X325MG) PO (17:15)
[2018-03-03] MEDS ORDERED: LORazepam 2 MG/ML VIAL (J2060) IV (17:15)
[2018-03-03] MEDS ORDERED: SCOPOLAMINE 1MG TRANSDERMAL PATCH TOP (17:15)
[2018-03-03] MEDS: PRIMIDONE 50 MG TAB PO (20:17)
[2018-03-03] MEDS: LEVEMIR (INSULIN DETEMIR) 1 UNITS/0.01ML SC (20:18)
[2018-03-03] MEDS ORDERED: HEPARIN SOD (PORCINE) 5000 UNITS/ML VIAL SQ (22:00)
[2018-03-04] MEDS: MORPHINE 4 MG/ML 1ML VIAL/SYRINGE (J2270) IV ×2 (01:14→09:37)
[2018-03-04 10:38] LABS: CA 125 229.5 U/ML (<30.2)
[2018-03-04] MEDS ORDERED: NYSTATIN 100,000 UNITS/GM TOPICAL PWD 15 GM TOP (11:00)
[2018-03-04] MEDS: MORPHINE 10MG/0.5ML ORAL CONCENTRATE SOLUTION U/D SL (12:10)
== END 2018-03-04 15:35 | disposition hospice, home (50) | DRG 871 ==
LOC: M MSPAV 03-03 20:41 → M ED 08:45 → M ED INP 13:10 → M PCU 14:20 → M ICU 18:48
PROVIDERS: Internal Medicine
PROC: 05HM33Z Insertion of Infusion Device into Right Internal Jugular Vein, Percutaneous Approach (ICD-10-PCS; principal; 2018-03-02)
DX: A41.9 Sepsis, unspecified organism (principal); R65.21 Severe sepsis with septic shock; I50.33 Acute on chronic diastolic (congestive) heart failure; G93.41 Metabolic encephalopathy; I21.4 Non-ST elevation (NSTEMI) myocardial infarction; N17.9 Acute kidney failure, unspecified; N39.0 Urinary tract infection, site not specified; E87.2 Acidosis; C79.89 Secondary malignant neoplasm of other specified sites; Z66 Do not resuscitate; C57.8 Malignant neoplasm of overlapping sites of female genital organs; I48.2 Chronic atrial fibrillation; E11.9 Type 2 diabetes mellitus without complications; Z79.01 Long term (current) use of anticoagulants; I11.0 Hypertensive heart disease with heart failure; Z51.5 Encounter for palliative care; Z79.899 Other long term (current) drug therapy; Z79.4 Long term (current) use of insulin